=== PATIENT | male | born 1990 | race Caucasian/White ===

== ENCOUNTER 2017-03-31 16:08 | Emergency (ER) | payer OTHER ==
[~2017-03-31] VITALS: Ht 177.8 cm; Wt 110.7 kg
[2017-03-31] MEDS ORDERED: KEFLEX500 MG PO (16:53)
[2017-03-31 17:14] VITALS: BP 154/82
== END 2017-03-31 17:15 | disposition home or self-care (01) ==
LOC: EME 16:08
DX: S80.812A Abrasion, left lower leg, initial encounter (principal); Y93.64 Activity, baseball; Z72.0 Tobacco use
CPT/HCPCS: 99281; 99283